=== PATIENT | female | born 1965 | race Caucasian/White ===

== ENCOUNTER → 2018-06-01 10:50 | Outpatient (CLI) | payer OTHER, SELFPAY ==
--- NOTE | 2018-06-01 10:58 | XR_ITS ---
XR ribs BI min 4V w CXR1V Ordering Physician: Iron Guzmán MD Patient Age: 52 years: Female HISTORY: ITS.REASON: FALL Fell with pain at right chest and sternal area. TECHNIQUE: Both oblique views right ribs along with AP chest above and below diaphragm COMPARISON :None FINDINGS Right ribs intact no right rib fracture evident. No lesion.. Note is made of multiple old left rib fractures involving the left I believe ribs 4--8. The lungs well expanded and clear.. Scattered small calcified granulomas throughout the lung garcia bilaterally right more so than left. Heart erin and mediastinal structures satisfactory. . If pain at the sternal area per persist a follow-up dedicated sternal series recommended. PA and lateral chest may be of benefit as well as lateral view of the sternum is particularly helpful. I appreciate no obvious sternal fracture on the current limited oblique views of the sternum instantly seen on today's oblique views of ribs . IMPRESSION: Right ribs intact no fracture or lesion evident. Lungs clear no active disease. Multiple old healed left rib fractures incidentally noted. (Note: If significant sternal pain persist suggest follow-up dedicated sternal series.] Cc)
--- NOTE | 2018-06-01 10:58 | XR_ITS ---
XR knee RT 3V Ordering Physician: Iron Guzmán MD Patient Age: 52 years: Female HISTORY: ITS.REASON: FALL Fall right knee pain with Right TKA history TECHNIQUE: 3 views right knee COMPARISON :No prior studies of the knee FINDINGS No acute fracture evident on. The lateral view is slightly rotated . The right TKA appears to be in good position stable with no evidence of fracture or significant loosening. No joint effusion. . Very subtle lucent line beneath the bone cement at the lateral tibial plateau probably this satisfactory but if pain persists made in comparison to old studies. IMPRESSION: ... No fracture. Note acute findings. No joint effusion Right TKA overall satisfactory. No good evidence fracture or significant loosening involving TKA If pain should persist consider follow-up.
== END ==
PROVIDERS: PCP Internal Medicine Adolescent Medicine; Visit Provider Internal Medicine Adolescent Medicine
DX: R07.89 Other chest pain (principal); M25.561 Pain in right knee
CPT/HCPCS: 71111; 73562

== ENCOUNTER → 2020-01-10 10:11 | Outpatient (CLI) | payer BC, SELFPAY ==
[2020-01-10 10:16] LABS: Adenovirus,PCR Not Detected (NotDetected); Bordetella Pertussis Not Detected (NotDetected); Chlamydophila Pneumoniae, PCR Not Detected (NotDetected); Coronavirus 229E Not Detected (NotDetected); Coronavirus NL63 Not Detected (NotDetected); Coronavirus OC43 Not Detected (NotDetected); Coronovirus HKU1,PCR Not Detected (NotDetected); Human Metapneumovirus Not Detected (NotDetected); Influenza A, PCR Not Detected (NotDetected); Influenza AH1, 2009 Not Detected (NotDetected); Influenza AH1, PCR Not Detected (NotDetected); Influenza AH3,PCR Not Detected (NotDetected); Influenza B, PCR Not Detected (NotDetected); Mycoplasma Pneumoniae, PCR Not Detected (NotDetected); Parainfluenza 1, PCR Not Detected (NotDetected); Parainfluenza 2, PCR Not Detected (NotDetected); Parainfluenza 3, PCR Not Detected (NotDetected); Parainfluenza 4, PCR Not Detected (NotDetected); Respiratory Syncytial Virus Not Detected (NotDetected); Rhinovirus/Enterovirus Not Detected (NotDetected)
== END ==
LOC: LAB.CARL 10:12
PROVIDERS: Visit Provider Internal Medicine Adolescent Medicine
DX: Z03.818 Encounter for observation for suspected exposure to other biological agents ruled out (principal); R50.9 Fever, unspecified
CPT/HCPCS: 87486; 87581; 87633; 87798; U0003

== ENCOUNTER → 2021-02-26 08:19 | Outpatient (CLI) | payer BC, SELFPAY | PROVIDERS: Visit Provider Internal Medicine Adolescent Medicine | DX: R30.0 Dysuria (principal) | CPT/HCPCS: 87086 ==